=== PATIENT | male | born 1945 | race Caucasian/White ===

== ENCOUNTER → 2017-12-29 | Outpatient (CLI) | payer MEDICARE, BC ==
[~2017-12-29] MED LIST: ACET325 PO; ADVI200T16 PO; ADVI200T17 PO; ALEV220T14 PO; ALL220TA PO; AMOX500T PO; ATOR40TA16 PO; BOSW5TAB PO; CENTCHW4 CHEW; CLOP75 PO; CLOP75TA PO; COLA100C5 PO; DOCU1CAP39 PO; DOXY25TA7 PO; LIPI80TA16 PO; MELA1TAB18 PO; MELA3TAB14 PO; OSTETAB7 PO; PERI0.126 SWISH-SPIT; RANI150T PO; TAB-TAB PO; TAMS0.4C4 PO; TAMS0.4C67 PO; TYLE325T PO; UNIS25TA2 PO
[2017-12-29 11:15] LABS: BILIRUBIN, URINE NEG (NEG); BLOOD, URINE NEG (NEG); GLUCOSE,URINE NEG (NEG); HYALINE CAST, URINE 2 /lpf (RARE); KETONE, URINE NEG (NEG); NITRITE,URINE NEG (NEG); URINE COLOR LIGHT-YELLOW (YELLW/STRAW); URINE LEUKOCYTE ESTERASE NEG (NEG)
[2017-12-29 11:18] LABS: HEMATOCRIT 40.1 % (39.0-51.0); HEMOGLOBIN 13.3 GM/DL (13.0-17.0); MEAN CELL VOLUME 87.1 FL (80.0-100.0); MEAN CORPUSCULAR HEMOGLOBIN 28.8 PG (27.0-34.0); MEAN CORPUSCULAR HGB CONC 33.1 % (32.0-36.0); MEAN PLATELET VOLUME 8.3 FL (7.0-11.0); PLATELET COUNT 195 TH/MM3 (150-450); RED BLOOD COUNT 4.61 MIL/MM3 (4.50-5.90); RED CELL DISTRIBUTION WIDTH 13.4 % (11.6-17.2); WHITE BLOOD COUNT 5.5 TH/MM3 (4.0-11.0)
[2017-12-29 11:27] LABS: PROTHROMBIN TIME - PATIENT 10.4 SEC (9.8-11.6)
[2017-12-29 11:39] LABS: BICARBONATE 27.3 MEQ/L (21.0-32.0); CALCIUM 9.4 MG/DL (8.5-10.1); CREATININE 1.12 MG/DL (0.60-1.30)
--- NOTE | 2017-12-29 23:54 | EKG ---
Date Performed: 12/29/2017 Time Performed: 11:21:21 PTAGE: 72 years EKG: PROBABLE ECTOPIC RHYTHM 1ST DEGREE AV BLOCK RIGHT BUNDLE BRANCH BLOCK APPARENTLY DROPPED BE AT AT THE BEGINNING OF THE TRACING BUT UNABLE TO EVALUATE PREVIOUS TO TRACING ABNORMAL ECG Since t he PREVIOUS TRACING , no significant change noted DOCTOR: Luis Eduardo Howe Interpretating Date/Time 12/29/2017 23:54:21
== END ==
LOC: CPRE 10:28
PROVIDERS: ATTEND Thoracic Surgery (Cardiothoracic Vascular Surgery)
DX: Z01.810 Encounter for preprocedural cardiovascular examination (principal); Z01.812 Encounter for preprocedural laboratory examination; S21.109A Unspecified open wound of unspecified front wall of thorax without penetration into thoracic cavity, initial encounter; X58.XXXA Exposure to other specified factors, initial encounter; Z79.01 Long term (current) use of anticoagulants; R94.31 Abnormal electrocardiogram [ECG] [EKG]
CPT/HCPCS: 36415; 80048; 81001; 85027; 85610; 85730; 93005

== ENCOUNTER → 2018-01-06 | Day surgery (SDC) | payer MEDICARE, BC ==
[~2018-01-06] VITALS: Ht 175.3 cm; Wt 70.1 kg
[~2018-01-06] MED LIST changes: -ACET325 PO; +ACETAMINOPHEN 1000 MG/100 ML 100 ML IV ONE; +ACETAMINOPHEN/HYDROcodone 325 MG/5 MG TAB PO PRN; -ADVI200T16 PO; -ALL220TA PO; +BUPIVACAINE HCL PF 0.5% 30 ML VIAL ONE; +CHLORHEXIDINE GLUCONATE 2 % 1 PACK (2 CLOTHS) TOPICAL PRN; -CLOP75 PO; +DEXAMETHASONE SOD PHOS 4 MG/ML VIAL IV ONE; +DO NOT ADM ANY ANTICOAGULANT DRUGS PRN; -DOCU1CAP39 PO; +LACTATED RINGER'S 1000 ML IV PRN; +LIDOCAINE HCL 1% PF 5 ML SYRINGE OTHER ONE; -LIPI80TA16 PO; -MELA3TAB14 PO; +METOPROLOL TARTRATE 25 MG TAB PO PRN; +MIDAZOLAM HCL 2 MG/2 ML VIAL ONE; +ONDANSETRON HCL 4 MG/2 ML VIAL IV ONE; +ONDANSETRON HCL 4 MG/2 ML VIAL IV PUSH PRN; -OSTETAB7 PO; +POVIDONE IODINE 5% (ANTISEPSIS KIT) 4 APPLICATIONS EACH NARE PRN; +PROPOFOL 200 MG/20 ML AMP IV ONE; +SODIUM CHLORID 0.9% 500 ML IV PRN; +SUGAMMADEX SODIUM 200 MG/2 ML VIAL IV PUSH ONE; -TAB-TAB PO; -TAMS0.4C67 PO; -UNIS25TA2 PO; +ceFAZolin 2 GM PREMIX 50 ML ONE; +ceFAZolin INJ 1,000 MG VIAL ONE; +ePHEDrine/NS 25 MG/5 ML SYRINGE IV ONE
--- NOTE | 2018-01-06 08:52 | PD.OP ---
cc: Chelsie Mcclelland MD; Chace Londono MD Operative Report Date of Surgery: January 06, 2018 Preoperative Diagnosis: (1) Protruding sternal wires Postoperative Diagnosis: same Procedure: Wound exploration, removal of sternal wire Anesthesia: General Surgeon: Chelsie Mcclelland Hydraulic Specialist(s): MARCELA Forrest Operation and Findings: The patient gave informed consent for this procedure and was taken to the operating room. After adequate anesthesia he was prepped and draped. A time out was performed. The skin overlying the palpable wire was incised and electrocautery was used to isolate the wire. The wire was cut and removed. The wound was debrided secondary to chronic inflammation from this wire. The wound was irrigated and closed in layers. 0.5% Marcaine was infiltrated in the area surrounding the incision for postop analgesia. Sponge and instrument counts were performed and correct. The patient was transported to the PACU in stable condition. Chelsie Mcclelland MD January 06, 2018 08:52
[2018-01-06 10:15] VITALS: BP 129/57; PULSE 64; RESP 18; TEMP 97.6; O2SAT 97
== END | disposition home or self-care (01) ==
LOC: HCVO 05:20
PROVIDERS: ATTEND Thoracic Surgery (Cardiothoracic Vascular Surgery)
DX: T85.692A Other mechanical complication of permanent sutures, initial encounter (principal)
CPT/HCPCS: 00400; 20670; J0131; J0690; J1100; J2250; J2405; J3010; J7120